=== PATIENT | female | born 1970 | race Caucasian/White ===

== ENCOUNTER 2020-09-17 16:15 | Emergency (ER) | payer OTHER, SELFPAY ==
[2020-09-17 16:18] VITALS: BP 130/73; PULSE 85; RESP 16; TEMP 37.2; O2SAT 98
--- NOTE | 2020-09-17 16:56 | ED.ABDPAIN ---
HPI - Abdominal Pain General Chief Complaint: Abdominal Pain Stated Complaint: COVID+, need fluids Time Seen by Provider: 09/17/20 16:35 Source: patient Mode of arrival: ambulatory Limitations: no limitations History of Present Illness HPI narrative: This is a 50 year old female that presents to the ER for nausea/vomiting/diarrhea x 4 days. Also reports fever and a mild cough. Reports she just got her covid test back and it was positive. She had not had the covid vaccine yet. Denies abdominal pain, or dysuria. Related Data Allergies Allergy/AdvReac Type Severity Reaction Status Date / Time No Known Allergies Allergy Unverified 04/03/11 07:39 Review of Systems Review of Systems: Narrative: CONSTITUTIONAL: Reports fever ENT: Denies congestion, sore throat RESPIRATORY: Reports cough GASTROINTESTINAL: Reports nausea, vomiting, and diarrhea. Denies abdominal pain GENITOURINARY: Denies dysuria All systems reviewed & are unremarkable except as noted in HPI and below PMFSH Past Medical History Medical History (Updated 09/17/20 @ 20:37 by Yarely Brown PA-C) History of depression Surgical History Surgical History (Updated 09/17/20 @ 16:59 by Yarely Brown PA-C) History of colonoscopy History of esophagogastroduodenoscopy (EGD) Exam Narrative: Exam Narrative: GENERAL: Well-appearing, well-nourished, and in no acute distress. HEAD: Normocephalic, atraumatic. EYES: EOMI. CHEST: Clear to auscultation. No respiratory distress. No wheezes rales or rhonchi HEART: Regular rate and rhythm. No murmur heard. Normal peripheral pulses. ABDOMEN: Soft, nontender, nondistended, normal active bowel sounds. No CVA tenderness EXTREMITIES: Normal range of motion. No edema. SKIN: Warm, dry, no rash. NEURO: No focal deficits. Alert and oriented x3. PSYCH: Normal mood and affect Course Vital Signs Vital signs: Vital Signs Temperature 99.0 F 09/17/20 16:18 Pulse Rate 85 09/17/20 16:18 Respiratory Rate 16 09/17/20 16:18 Blood Pressure 130/73 09/17/20 16:18 Pulse Oximetry 98 09/17/20 16:18 Temperature 99.0 F 09/17/20 16:18 Pulse Rate 85 09/17/20 20:27 Respiratory Rate 20 09/17/20 20:27 Blood Pressure 135/80 09/17/20 20:27 Pulse Oximetry 98 09/17/20 20:27 MDM - Abdominal Pain MDM Narrative Medical decision making narrative: Patient presents to the emergency department for nausea, vomiting and diarrhea. Abdominal exam is benign. Was recently diagnosed with Covid. She is afebrile and nontoxic-appearing. Her vitals are stable. Laboratory evaluation is without concerning findings. Patient hydrated in the ED and given nausea medication with improvement. Able to tolerate p.o. challenge. She is stable and felt appropriate for further outpatient evaluation. She was given warnings to return to the ER Lab Data Attestation: I reviewed the patient's lab results. Result diagrams: 09/17/20 19:26 09/17/20 19:26 Labs: Lab Results 09/17/20 09/17/20 09/17/20 Range/Units 18:08 19:26 19:26 WBC 3.2 L (4.5-10.0) K/mm3 RBC 4.13 L (4.2-5.4) M/mm3 Hgb 12.9 (12.0-15.0) g/dL Hct 39.0 (37.0-47.0) % MCV 94.4 (80-100) fl MCH 31.2 (26-34) pg MCHC 33.1 (32-36) g/dl RDW 12.0 (11.5-14.5) % Plt Count 154 (150-375) k/mm3 MPV 8.9 (7.4-10.4) fl Immature Gran % (Auto) 0.3 (0-0.5) % Neut % (Auto) 68.1 (45.5-73.1) % Lymph % (Auto) 21.3 (18.3-44.2) % [place] % (Auto) 10.0 H (2.6-8.5) % Eos % (Auto) 0.0 (0-4.4) % Baso % (Auto) 0.3 (0.2-1.2) % Lymph # (Auto) 0.68 L (0.9-3.2) K/mm3 [place] # (Auto) 0.3 (0.1-0.6) K/mm3 Eos # (Auto) 0.0 (0-0.3) K/mm3 Baso # (Auto) 0.0 (0.0-0.1) K/mm3 Abs Immat Gran (auto) 0.01 (0.00-0.031) K/mm3 Absolute Neuts (auto) 2.2 (1.3-6.7) K/mm3 Absolute Nucleated RBC 0.0 (0.0-0.012) K/mm3 Nucleated RBC % 0.0 (0.0-0.2) % Sodium 137 (137-145)
[2020-09-17 17:05] VITALS: PULSE 93; RESP 18; O2SAT 93
[2020-09-17] MEDS: SODIUM CHLORIDE 0.9% IV 1,000 ML 999 ML IV CONT (18:00)
[2020-09-17] MEDS: ONDANSETRON INJ 4 MG/2 ML VIAL IV PUSH (18:00)
[2020-09-17 18:28] LABS: Add Urine Microscopic? YES; Appearance Urine Cloudy (Clear); Bilirubin Urine Negative (Negative); Blood Urine Negative (Negative); Color Urine Yellow (Yellow); Glucose Urine UA Negative (Negative); Ketones Urine 1+ mg/dL (Negative); Leukocyte Esterase Ur Negative LEU/UL (Negative); Mucus Urine Rare /lpf; Nitrate Urine Negative (Negative); Protein Urine 1+ mg/dL (Negative); RBC Urine 0-2 /hpf (0-2); Specific Grav Ur 1.025 (1.001-1.035); Squamous Epithelial Cell Urine Many /hpf (Few); Urobilinogen Urine Negative mg/dL (<2.0); WBC Urine 0-3 /hpf
[2020-09-17 19:30] LABS: Basophils Percent Auto 0.3 % (0.2-1.2); Hemoglobin 12.9 g/dL (12.0-15.0); Immature Granulocyte Absolute 0.01 K/mm3 (0.00-0.031); Immature Granulocyte Percent A 0.3 % (0-0.5); Lymphocytes Absolute Auto 0.68 K/mm3 (0.9-3.2); Lymphocytes Percent Auto 21.3 % (18.3-44.2); Mean Corpuscular HGB Conc 33.1 g/dl (32-36); Mean Corpuscular Hemoglobin 31.2 pg (26-34); Mean Corpuscular Volume 94.4 fl (80-100); Mean Platelet Volume 8.9 fl (7.4-10.4); Monocytes Absolute Auto 0.3 K/mm3 (0.1-0.6); Neutrophils Absolute Auto 2.2 K/mm3 (1.3-6.7); Neutrophils Percent Auto 68.1 % (45.5-73.1); Platelet Count Result 154 k/mm3 (150-375); Red Blood Count 4.13 M/mm3 (4.2-5.4); White Blood Count 3.2 K/mm3 (4.5-10.0)
[2020-09-17 20:08] LABS: Alanine Aminotransferase 40 U/L (4-35); Albumin Level 4.1 g/dL (3.5-5.1); Alkaline Phosphatase 75 U/L (38-126); Anion Gap 7 mmol/L (8-16); Aspartate Amino Transferase 44 U/L (14-36); Bilirubin,Total 0.3 mg/dL (0.2-1.3); Blood Urea Nitrogen 9 mg/dL (7-17); Calcium 8.3 mg/dL (8.4-10.2); Carbon Dioxide 25 mmol/L (22-30); Chloride 105 mmol/L (98-107); Estimated CRCL calculation 71 ml/min; Estimated Glomerular Filt Rate > 60; Glucose 96 mg/dL (65-105); Lipase 188 U/L (23-300); Potassium 3.8 mmol/L (3.4-5.0); Sodium 137 mmol/L (137-145)
[2020-09-17 20:27] VITALS: BP 135/80; PULSE 85; RESP 20; O2SAT 98
[2020-09-17] MEDS: diphenhydrAMINE HCl INJ 50 MG/ML VIAL 25 MG IV PUSH (20:55)
[2020-09-17] MEDS: METOCLOPRAMIDE HCL INJ 10 MG/2 ML VIAL IV PUSH (20:55)
== END 2020-09-17 22:45 | disposition home or self-care (01) ==
PROVIDERS: Emergency Provider Emergency Medicine; PCP Family Medicine
DX: U07.1 COVID-19 (principal); R11.2 Nausea with vomiting, unspecified
CPT/HCPCS: 36415; 80053; 81001; 81025; 83690; 85025; 96361; 96374; 96375; 99284; J0131; J1200; J2405; J2765; J7030